=== PATIENT | male | born 1995 | race Caucasian/White ===

== ENCOUNTER 2016-05-22 11:34 | Emergency (ER) | payer SELFPAY ==
[2016-05-22] MEDS ORDERED: Bicillin LA 1.2 MILLION UNITS/2 ML SYRINGE ONE (11:51)
[2016-05-22] MEDS ORDERED: Bicillin CR 1.2 MILL UNITS/2 ML SYRINGE ONE (11:52)
== END 2016-05-22 12:14 | disposition home or self-care (01) ==
LOC: BURERS 11:34
DX: J02.0 Streptococcal pharyngitis (principal); F31.9 Bipolar disorder, unspecified; F17.210 Nicotine dependence, cigarettes, uncomplicated
CPT/HCPCS: 96372; J0558; J0561

== ENCOUNTER 2016-09-16 19:08 | Emergency (ER) | payer SELFPAY ==
--- NOTE | 2016-09-16 21:18 | RAD ---
RIGHT ANKLE THREE VIEWS 09/16/16 Soft tissue swelling is seen laterally. No acute fracture was identified. The joint space and articu lar surfaces appear normal. IMPRESSION: Lateral swelling. POS: HOME
== END 2016-09-16 19:55 | disposition home or self-care (01) ==
LOC: BURERS 19:08
DX: S93.401A Sprain of unspecified ligament of right ankle, initial encounter (principal); F31.9 Bipolar disorder, unspecified; F90.9 Attention-deficit hyperactivity disorder, unspecified type; F17.210 Nicotine dependence, cigarettes, uncomplicated; X50.1XXA Overexertion from prolonged static or awkward postures, initial encounter; Y93.67 Activity, basketball; Y92.39 Other specified sports and athletic area as the place of occurrence of the external cause; Y99.8 Other external cause status

== ENCOUNTER 2017-03-21 08:24 | Emergency (ER) | payer SELFPAY | END 2017-03-21 09:06 | disposition home or self-care (01) | LOC: BURERS 08:24 | DX: L02.213 Cutaneous abscess of chest wall (principal); F31.9 Bipolar disorder, unspecified; F90.9 Attention-deficit hyperactivity disorder, unspecified type; F17.210 Nicotine dependence, cigarettes, uncomplicated | CPT/HCPCS: 10060; 87070; 87205; J2001 ==

== ENCOUNTER 2017-07-14 08:35 | Emergency (ER) | payer SELFPAY | END 2017-07-14 08:59 | disposition home or self-care (01) | LOC: BURERS 08:35 | DX: S23.41XA Sprain of ribs, initial encounter (principal); F31.9 Bipolar disorder, unspecified; F90.9 Attention-deficit hyperactivity disorder, unspecified type; F17.210 Nicotine dependence, cigarettes, uncomplicated; X58.XXXA Exposure to other specified factors, initial encounter | CPT/HCPCS: 99283 ==

== ENCOUNTER 2019-02-11 22:01 | Emergency (ER) | payer SELFPAY ==
[2019-02-11] MEDS ORDERED: Ibuprofen 800 MG TAB ONE (22:16)
[2019-02-11] MEDS ORDERED: HYDROcodone/Acetaminophen 10/325 mg Tablet ONE (22:16)
--- NOTE | 2019-02-11 22:28 | RAD ---
EXAM: XR Foot Rt 3 View STANDARD PROVIDED CLINICAL HISTORY: Pain status post injury COMPARISON: None FINDINGS: Comminuted nondisplaced intra-articular base of fifth metatarsal fracture. No additional fracture is evident. Alignment appears anatomic. Joint spaces appear preserved. IMPRESSION: Base of fifth metatarsal fracture.
== END 2019-02-11 22:45 | disposition home or self-care (01) ==
LOC: BURERS 22:01
DX: S92.354A Nondisplaced fracture of fifth metatarsal bone, right foot, initial encounter for closed fracture (principal); F31.9 Bipolar disorder, unspecified; F90.9 Attention-deficit hyperactivity disorder, unspecified type; F41.9 Anxiety disorder, unspecified; W22.8XXA Striking against or struck by other objects, initial encounter
CPT/HCPCS: 29515

== ENCOUNTER 2020-08-22 07:20 | Emergency (ER) | payer SELFPAY ==
[2020-08-22] MEDS ORDERED: AMOXicillin 250 MG CAP ONE (07:56)
== END 2020-08-22 07:58 | disposition home or self-care (01) ==
LOC: BURERS 07:20
DX: K02.9 Dental caries, unspecified (principal); F17.210 Nicotine dependence, cigarettes, uncomplicated
CPT/HCPCS: 99283

== ENCOUNTER 2021-02-27 13:31 | Emergency (ER) | payer OTHER, SELFPAY ==
[2021-02-27] MEDS ORDERED: Ondansetron ODT 4 MG TAB ONE (14:44)
[2021-02-27] MEDS ORDERED: Acetaminophen 500 MG TAB ONE (14:44)
[2021-02-28 17:24] LABS: SARS-CoV-2 PCR by NAA DETECTED (NotDetected)
== END 2021-02-27 14:55 | disposition home or self-care (01) ==
LOC: BURERS 13:31
DX: U07.1 COVID-19 (principal); R11.2 Nausea with vomiting, unspecified; F17.210 Nicotine dependence, cigarettes, uncomplicated
CPT/HCPCS: 99284; Q0162; U0003; U0005

== ENCOUNTER 2021-04-15 08:43 | Emergency (ER) | payer SELFPAY ==
[2021-04-15] MEDS ORDERED: Penicillin V Potassium 250 MG TAB ONE (09:24)
== END 2021-04-15 09:27 | disposition home or self-care (01) ==
LOC: BURERS 08:43
DX: K04.7 Periapical abscess without sinus (principal); L03.211 Cellulitis of face; F17.210 Nicotine dependence, cigarettes, uncomplicated
CPT/HCPCS: 99283

== ENCOUNTER 2021-11-14 19:02 | Emergency (ER) | payer SELFPAY | END 2021-11-14 19:45 | disposition home or self-care (01) | LOC: BURERS 19:02 | DX: J06.9 Acute upper respiratory infection, unspecified (principal); F17.210 Nicotine dependence, cigarettes, uncomplicated | CPT/HCPCS: 99283 ==

== ENCOUNTER 2021-11-20 21:41 | Emergency (ER) | payer SELFPAY ==
[2021-11-20] MEDS ORDERED: Dexamethasone 4 mg/ml Vial ONE (22:21)
== END 2021-11-20 22:27 | disposition home or self-care (01) ==
LOC: BURERS 21:41
DX: B34.9 Viral infection, unspecified (principal); F17.210 Nicotine dependence, cigarettes, uncomplicated; F12.19 Cannabis abuse with unspecified cannabis-induced disorder
CPT/HCPCS: 99283; J1100

== ENCOUNTER 2022-12-12 10:37 | Emergency (ER) | payer SELFPAY | END 2022-12-12 10:54 | disposition home or self-care (01) | LOC: BURERS 10:37 | DX: K08.89 Other specified disorders of teeth and supporting structures (principal); F17.210 Nicotine dependence, cigarettes, uncomplicated | CPT/HCPCS: 99282 ==

== ENCOUNTER 2023-01-30 17:16 | Emergency (ER) | payer SELFPAY ==
[2023-01-30] MEDS ORDERED: Ibuprofen 800 MG TAB ONE (17:25)
[2023-01-30] MEDS ORDERED: Bicillin LA 1.2 MILLION UNITS/2 ML SYRINGE ONE (18:00)
== END 2023-01-30 18:20 | disposition home or self-care (01) ==
LOC: BURERS 17:16
DX: J02.0 Streptococcal pharyngitis (principal); F17.210 Nicotine dependence, cigarettes, uncomplicated
CPT/HCPCS: 87430; 87804; 96372; 99283; J0561